=== PATIENT | female | born 1960 | race Caucasian/White ===

== ENCOUNTER → 2016-09-10 | Day surgery (SDC) | payer OTHER ==
[2016-09-10 05:20] LABS: BASOPHIL 1.6 % (0-2); EOSINOPHIL 2.2 % (0-5); HGB 11.5 g/dl (12.5-16.0); LYMPHOCYTE 32.1 % (15-48); MCHC 32.9 g/dL (32.0-36.0); MCV 51.6 fL (78.0-100.0); MONOCYTE 7.3 % (0-12); NEUTROPHIL 56.8 % (41-80); PLT 353 K/uL (150-400); RBC 6.78 M/uL (4.20-5.40); RDW 20.4 % (11.5-14.0); WBC 6.3 K/uL (4.0-10.5)
[2016-09-10 05:31] LABS: INR 1.06 (0.9-1.2); PROTHROMBIN TIME 13.4 SECONDS (11.7-14.0); PTT 27.1 SECONDS (23.2-31.4)
[2016-09-10 05:42] LABS: ALBUMIN 4.5 g/dL (3.5-5.0); BILIRUBIN - TOTAL 0.8 mg/dL (0.1-1.0); CKMB 1.08 ng/mL (0.97-4.94); CREATININE 0.7 mg/dL (0.5-1.0); GLOBULIN (CALCULATION) 3.1 g/dL (2.2-4.2); MAGNESIUM 2.33 mg/dL (1.40-2.10); MYOGLOBIN 22 ng/mL (26-65); POTASSIUM 4.3 mmol/L (3.5-5.1); PRO-BNP 25 pg/mL (0-125); TOTAL PROTEIN 7.6 g/dL (6.4-8.3); TROPONIN T < 0.010 ng/mL
[2016-09-10 06:38] LABS: BILIRUBIN NEGATIVE (NEGATIVE); BLOOD TRACE-LYSED Ery/uL (NEGATIVE); CLARITY CLEAR (CLEAR); COLOR YELLOW (YELLOW); GLUCOSE (U) NORMAL (NORMAL); KETONE (U) NEGATIVE (NEGATIVE); LEUKOCYTES NEGATIVE Leu/uL (NEGATIVE); NITRITE NEGATIVE (NEGATIVE); PROTEIN NEGATIVE (NEGATIVE); UROBILINOGEN 0.2 mg/dL (0.2-1.0); pH 5.5 (5.0-9.0)
[2016-09-10 06:46] LABS: AMORPHOUS URATES CRYSTALS TRACE; BACTERIA TRACE; URINARY RBC RARE
[2016-09-10 06:52] LABS: RETICULOCYTE COUNT 1.6 % (1.0-2.0)
== END | disposition home or self-care (01) ==
LOC: FER 04:33 → FAS 08:26
PROVIDERS: Internal Medicine
DX: K62.89 Other specified diseases of anus and rectum (principal); K58.9 Irritable bowel syndrome, unspecified; Z86.010 Personal history of colon polyps
CPT/HCPCS: 36415; 71010; 80053; 81001; 82550; 82553; 83735; 83874; 83880; 84484; 85025; 85044; 85610; 85730; 86140; 88305; 93005; J2704; Q9967